=== PATIENT | male | born 1975 | race Caucasian/White ===

== ENCOUNTER 2024-09-17 02:30 | Emergency (ER) | payer SELFPAY ==
[~2024-09-17] VITALS: Ht 180.3 cm; Wt 94.8 kg
[2024-09-17 02:48] VITALS: BP 95/68
== END 2024-09-17 02:48 | disposition home or self-care (01) ==
LOC: ED 02:30
DX: K12.0 Recurrent oral aphthae (principal)
CPT/HCPCS: 99283